=== PATIENT | male | born 1960 | race Two or more races ===

== ENCOUNTER → 2016-11-15 | Outpatient (CLI) | payer OTHER ==
[~2016-11-15] MED LIST: AMIO200T PO; ASPI81 PO; CARV6 PO; FURO20 PO; IOHEXOL 300 MG/ML 10 ML VIAL ONE; LISI-622 PO; NITR0.4T27 SL; SPIR25 PO
== END | disposition home or self-care (01) ==
LOC: RADPV 09:12
PROVIDERS: ATTEND Internal Medicine Nephrology
DX: N18.4 Chronic kidney disease, stage 4 (severe) (principal); N28.1 Cyst of kidney, acquired; N26.1 Atrophy of kidney (terminal); N32.89 Other specified disorders of bladder
CPT/HCPCS: 76770; Q9967